=== PATIENT | male | born 1990 | race Caucasian/White ===

== ENCOUNTER 2020-09-12 12:02 | Inpatient (IN) | payer OTHER ==
[~2020-09-12] VITALS: Ht 182.9 cm; Wt 126.5 kg
[~2020-09-12 12:02] MED LIST: AMOCLA600S PO; HYDGUAL120 PO; OTC ALLERGY MED
[2020-09-12 14:41] LABS: Hematocrit 44.4 % (37.0-53.0); Mean Corpuscular HGB 28.4 pg (26.0-34.0); Mean Corpuscular HGB Conc 33.8 g/dL (31.5-36.5); Mean Corpuscular Volume 84 fL (80-100); Mean Platelet Volume 10.1 fL (9.1-12.4); Platelet Count 261 K/mm3 (150-400); RDW Coefficient Variation 12.7 % (11.7-14.2); RDW Standard Deviation 39.3 fL (35.1-46.3); Red Blood Cell Count 5.28 M/mm3 (4.30-5.90)
[2020-09-12 14:53] LABS: Alanine Aminotransfer (ALT/SGP 226 U/L (12-78); Albumin, Blood 3.1 g/dL (3.4-5.0); Albumin/Globulin Ratio 0.6 (0.8-1.8); Alk Phos 89 U/L (50-136); Anion Gap 8 mmol/L (6-16); Aspartate Aminotrans (AST/SGOT 114 U/L (12-37); Bilirubin, Total 1.1 mg/dL (0.1-1.0); Blood Urea Nitrogen 17 mg/dL (8-24); Bun/Creatinine Ratio 13.5 (12.0-20.0); CO2, Blood 24 mmol/L (21-32); Calcium, Blood 8.9 mg/dL (8.5-10.1); Chloride, Blood 103 mmol/L (98-108); Creatinine, Blood 1.26 mg/dL (0.60-1.20); Globulin, Blood 4.9 g/dL (2.2-4.0); Glomerular Filtration Rate >60 (60-); Glucose, Blood 103 mg/dL (70-99); Potassium, Blood 3.5 mmol/L (3.5-5.5); Sodium, Blood 135 mmol/L (136-145)
[2020-09-12 15:30] LABS: BASOPHILS PERCENT MAN 0 % (0-2); EOSINOPHILS PERCENT MAN 0 % (0-6); LYMPHOCYTES % ATYPICAL MANUAL 3 % (0-0); LYMPHOCYTES ABSOLUTE MAN 1.31 K/mm3 (0.84-5.20); LYMPHOCYTES PERCENT MAN 16 % (21-46); MONOCYTES ABSOLUTE MAN 0.41 K/mm3 (0.16-1.47); MONOCYTES PERCENT MAN 6 % (4-13); NEUTROPHILS ABSOLUTE MAN 5.17 K/mm3 (1.96-9.15); SEG NEUTROPHILS PERCENT MAN 75 % (41-73); TOTAL CELLS COUNTED 100
[2020-09-12 16:30] LABS: PCO2 Arterial 28.8 mmHg (35-45); PO2 Arterial 74.5 mmHg (80-100); pH Blood Arterial 7.47 (7.35-7.45)
--- NOTE | 2020-09-13 | NUR ---
30 YR OLD MALE ADMITTED ON PREVIOUS SHIFT WITH DX OF COVID 19. PT ON DROPLET ISOLATION. HAS FINISHED FIRST DOSE OF REMDESIVIR AND ANTIBIOTIS. SEE MAR FOR DETAILS. ORINETD TO USE OF CALL LIGHT AND CALL LIGHT IN REACH
--- NOTE | 2020-09-13 04:53 | NUR ---
MIGHT SHIFT SUMMARY HAS BEEN RESTING QUIETLY SINCE HS WITH O2 PER NCAT 3L/MIN. IV MEDS INFUSED, DROPLET ISOLATION MAINTAINED. NO C/O VOICED, HAD STATED HE FELT "BETTER" POST REMDESIVIR INFUSION. CALL LIGHT IN REACH. WILL MONITOR
[2020-09-13 05:33] LABS: Hematocrit 43.9 % (37.0-53.0); Hemoglobin 14.7 g/dL (13.5-17.5); Mean Corpuscular HGB 28.5 pg (26.0-34.0); Mean Corpuscular HGB Conc 33.5 g/dL (31.5-36.5); Mean Corpuscular Volume 85 fL (80-100); Mean Platelet Volume 10.2 fL (9.1-12.4); Platelet Count 279 K/mm3 (150-400); RDW Coefficient Variation 12.8 % (11.7-14.2); RDW Standard Deviation 39.9 fL (35.1-46.3); Red Blood Cell Count 5.15 M/mm3 (4.30-5.90); White Blood Cell Count 6.61 K/mm3 (4.00-11.30)
[2020-09-13 05:41] LABS: PCO2 Arterial 32.7 mmHg (35-45); PO2 Arterial 61.6 mmHg (80-100); pH Blood Arterial 7.44 (7.35-7.45)
[2020-09-13 05:52] LABS: Anion Gap 7 mmol/L (6-16); Blood Urea Nitrogen 17 mg/dL (8-24); Bun/Creatinine Ratio 18.8 (12.0-20.0); CO2, Blood 24 mmol/L (21-32); Chloride, Blood 106 mmol/L (98-108); Creatinine, Blood 0.91 mg/dL (0.60-1.20); Glomerular Filtration Rate >60 (60-); Glucose, Blood 115 mg/dL (70-99); Potassium, Blood 3.6 mmol/L (3.5-5.5); Sodium, Blood 137 mmol/L (136-145)
[2020-09-13 11:15] LABS: C-Reactive Protein, High Sens. 96.5 mg/L (0.000-3.000)
--- NOTE | 2020-09-13 16:42 | NUR ---
SHIFT SUMMARY PATIENT DENIES PAIN AND NAUSEA. MAINTAINING OXYGENS SATURATION BETWEEN 90-92% ON 4L/NC. PATIENT REPORTS DYSPNEA WITH EXERTION BUT DENIES DIZZINESS WHEN AMBULATING. UP INDEPENDENT TO BATHROOM. PLEASANT AND COOPERATIVE WITH CARE.
--- NOTE | 2020-09-14 00:10 | NUR ---
NOTE O2 SATS DROPPING IN TO MID 80'S. RT IN THE ROOM, RT STATED HE WOULD START HIM ON HIGH FLOW HE IS NOT RESPONDING TO TREATMENT. WILL MONITOR.
--- NOTE | 2020-09-14 00:40 | NUR ---
CALL PLACED TO MD POWERHOUSE HELPER RE POSSIBLE BLOOD GAS, SAID NO, TO PLACE ON AIR VO. RT NOTIFIED. WILL CONTINUE TO MONITOR. O2 SATS AT THIS TIME 86%.
--- NOTE | 2020-09-14 05:52 | NUR ---
SPORTS MARKETER SUMMARY SHIFT COMMENCE TO NO COMPLAINTS VOICED. DENIES DISTRESS, O2 PER NC AT 3L/MIN. HOWEVER, AFTER GETTING UP TO THE BATHROOM IN THE NIGHT, BECAME SOB WITH O2 SATS IN THE 80'S. RT NOTIFIED, O2 INCRESED TO 6L/MIN AND STILL HAVING SOB, MD WAS NOTIFIED, AIR VO WAS ORDERED PER RT CONTROL. RT ASSESSED AND THEN PT WAS NOTED TO HAVE TAKEN OFF NC, AND WHEN NC WAS PLACED BACK ON AT 3L/MIN, PT RETURNED TO MID 90'S IN SATURATION. CURRENTLY SATING IN THE 90'S. DROPLET PRECAUTIONS MAINTAINED. CALL LIGHT IN REACH.
[2020-09-14 06:19] LABS: Alanine Aminotransfer (ALT/SGP 218 U/L (12-78); Albumin, Blood 2.7 g/dL (3.4-5.0); Albumin/Globulin Ratio 0.6 (0.8-1.8); Alk Phos 85 U/L (50-136); Anion Gap 9 mmol/L (6-16); Aspartate Aminotrans (AST/SGOT 66 U/L (12-37); Bilirubin, Total 0.5 mg/dL (0.1-1.0); Blood Urea Nitrogen 19 mg/dL (8-24); Bun/Creatinine Ratio 18.4 (12.0-20.0); CO2, Blood 24 mmol/L (21-32); Chloride, Blood 107 mmol/L (98-108); Creatinine, Blood 1.03 mg/dL (0.60-1.20); Globulin, Blood 4.5 g/dL (2.2-4.0); Glomerular Filtration Rate >60 (60-); Glucose, Blood 111 mg/dL (70-99); Potassium, Blood 3.4 mmol/L (3.5-5.5); Sodium, Blood 140 mmol/L (136-145); Total Protein, Blood 7.2 g/dL (6.4-8.2)
--- NOTE | 2020-09-14 12:43 | NUR ---
ALERT. ORIENTED. ADVISED THIS MORNING ABOUT BENEFIT OF PRONING. GIVEN COUPLE EXTRA PILLOWS AND WHEN HOSPITALIST WENT IN PATIENT WAS PRONING. DOES DESAT WHEN GOING TO BATHROOM AT THIS TIME. ON 5 LPM HIGH FLOW OXYGEN. INDEPENDENT IN ROOM. WCTM
--- NOTE | 2020-09-14 13:56 | NUR ---
PATIENT SATS HIGH 90'S ON 6 LPM WHEN SLEEPING PRONE. OBSERVED AT 89%-91% WHEN SITTING IN BED. ADVISED PATIENT COUPLE TIMES TODAY TO LYE ON HIS STOMACH WHICH HE IS DOING AT THIS TIME. TM
--- NOTE | 2020-09-14 18:08 | NUR ---
ALERT. ORIENTED. PLEASANT. NO COUGH. LUNGS DIM T/O. ON CONTINUOUS WIFI SAT MONITOR. ON 6 LPM HIGH FLOW OXYGEN VIA CANNULA. WHEN SATS ARE HIGH 90'S PATIENT OBSERVED BEING IN PRONE POSITION. WHEN SATS LOW 90'S PATIENT OBSERVED NONPRONE. EARLY A.M. PATIENT HAD DROPPED DOWN TO 88-91% WITH OXYGEN BEING TITRATED FROM 3 LPM UP TO 6 LPM. PATIENT ADVISED EVERYTIME THIS RN GOES IN TO SEE HIM THE BENEFITS OF LYING PRONE. GOOD APPETITE. INDEPENDENT IN THE ROOM. WCTM
--- NOTE | 2020-09-14 18:29 | NUR ---
PATIENT HAS BEEN EATTING OUSIDE FOOD THAT HAS BEEN BROUGHT IN FOR HIM. GOOD APPETITE.
--- NOTE | 2020-09-15 05:10 | NUR ---
SHIFT SUMMARY PT HAS RESTED T/O THE SHIFT. LUNGS REMAIN DIMINISHED T/O. OCCASIONAL NON PRODUCTIVE COUGH. PT IS AEBRILE, DENIES N/V. APPETITE IS GOOD. PT REMAINS ON 6L O2, T/O SHIFT HE QUICKLY DESATS DURING THE NIGHT WHILE SLEEPING AND WITH ACTIVITY. PT ENCOURAGED TO SELF PRONE, AND STATES THAT HE HAS BEEN DOING SO. O2 SATS BEING MONITORED OUTSIDE THE ROOM WITH BLUETOOTH BIOX MACHINE, SATS REMAIN WNL T/O SHIFT. PT INDEPENDENT IN ROOM, AND PERFORMS HIS OWN ADLS. ENCOURAGED TO CALL IF HE NEEDS ANYTHING, MAKES NEEDS KNOWN. NO ACUTE CHANGES OVERNIGHT. BED IN LOWEST POSITION, CALL LIGHT WITHIN REACH.
[2020-09-15 06:13] LABS: Alanine Aminotransfer (ALT/SGP 165 U/L (12-78); Albumin, Blood 2.6 g/dL (3.4-5.0); Albumin/Globulin Ratio 0.6 (0.8-1.8); Alk Phos 75 U/L (50-136); Anion Gap 4 mmol/L (6-16); Aspartate Aminotrans (AST/SGOT 32 U/L (12-37); Bilirubin, Total 0.4 mg/dL (0.1-1.0); Blood Urea Nitrogen 19 mg/dL (8-24); Bun/Creatinine Ratio 17.9 (12.0-20.0); CO2, Blood 27 mmol/L (21-32); Calcium, Blood 8.7 mg/dL (8.5-10.1); Chloride, Blood 111 mmol/L (98-108); Creatinine, Blood 1.06 mg/dL (0.60-1.20); Globulin, Blood 4.2 g/dL (2.2-4.0); Glomerular Filtration Rate >60 (60-); Glucose, Blood 103 mg/dL (70-99); Potassium, Blood 3.9 mmol/L (3.5-5.5); Sodium, Blood 142 mmol/L (136-145); Total Protein, Blood 6.8 g/dL (6.4-8.2)
--- NOTE | 2020-09-15 16:38 | NUR ---
SHIFT SUMMARY NO ACUTE CHANGES TO PRESENT THIS SHIFT. PT DOING WELL AT START OF SHIFT. WAS ON 6L O2 VIA NC. PT HAS BEEN TITRATED DOWN TO 2L O2 WITH BIOX AT 94%. PT REPORTS THAT HE IS FEELING BETTER TODAY AND IS HOPING TO GO HOME TOMORROW AFTER HIS LAST DOSE OF REMDESIVIR. DR SOLER HERE TO SEE PT THIS AM. UPDATED ON O2 REQUIREMENTS. PT IS A&O, INDEPENDENT IN AND TO [facility]. ABLE TO MAKE NEEDS KNOWN. CALL LT IN REACH. DENIED FURTHER NEEDS.
--- NOTE | 2020-09-16 04:53 | NUR ---
Shift Summary A/O, independent in room. Currently on 1.5L with resting sats above 90%. Attemted to titrate down to 1L, but patient desatted to low 80's during ambulation to bathroom. Bradycardia to low 40's during sleep. Patient refused Lovenox despite education RE high risk for blood clot formation. Continuous biox on. Otherwise, slept well through the night. Dyspneic with exertion.
[2020-09-16] MEDS ORDERED: ACET325 PO (11:07)
[2020-09-16] MEDS ORDERED: ALBU90OI INH (11:08)
[2020-09-16] MEDS ORDERED: Tessalon200 MG PO (11:08)
[2020-09-16] MEDS ORDERED: ASCO500 PO (11:08)
[2020-09-16] MEDS ORDERED: GUAI600T33 PO (11:09)
[2020-09-16] MEDS ORDERED: DECADRON6 M1 PO (11:09)
--- NOTE | 2020-09-16 15:47 | NUR ---
SHIFT SUMMARY PT AWAKE AT START OF SHIFT, DOING WELL. PT ON 1.5L O2 AND TITRATED DOWN TO 0.5L NC. PT'S BIOX REMAINED AT 91%-94%. PT WANTING TO GO HOME TODAY AFTER LAST DOSE OF REMDESIVIR. UP INDEPENDENTLY IN AND TO [facility]. PT PLACED ON RA W/O DIFFICULTY AND NO CHANGES TO BIOX. DR SOLER HERE TO SEE PT. VERBAL ORDER FOR PT TO HAVE HOME O2 EVAL FOR D/C. RT REPORTED PT DID GREAT AND DID NOT NEED O2 WHEN GOING HOME. D/C ORDERS PLACED. DR SOLER TO ONCE MORE TO SEE PT. D/C INSTRUCTIONS DISCUSSED WITH PT; VERBALIZED UNDERSTANDING. IV SITE D/C'D AFTER REMDESIVIR INFUSED AND PT ASSISTED OUT TO AND FAMILY VIA W/C.
== END 2020-09-16 13:50 | disposition home or self-care (01) | DRG 871 ==
LOC: ER 12:02 → MEDS 15:56
PROVIDERS: Internal Medicine; Student in an Organized Health Care Education/Training Program; ADMIT Internal Medicine
PROC: 8E0ZXY6 Isolation (ICD-10-PCS; principal; 2020-09-12)
PROC: 3E0333Z Introduction of Anti-inflammatory into Peripheral Vein, Percutaneous Approach (ICD-10-PCS; 2020-09-12)
PROC: XW033E5 Introduction of Remdesivir Anti-infective into Peripheral Vein, Percutaneous Approach, New Technology Group 5 (ICD-10-PCS; 2020-09-12)
DX: A41.89 Other specified sepsis (principal); U07.1 COVID-19; J12.82 Pneumonia due to coronavirus disease 2019; J96.01 Acute respiratory failure with hypoxia; E87.1 Hypo-osmolality and hyponatremia; N17.9 Acute kidney failure, unspecified; R65.20 Severe sepsis without septic shock; R74.01 Elevation of levels of liver transaminase levels
CPT/HCPCS: 36415; 36600; 71045; 80048; 80053; 82803; 83605; 83615; 85025; 85027; 85379; 85651; 86141; 87040; 93005; 93010; 94640; 94761; 94762; 96374; 99285-25; A9270; J0456; J1100; J1650; J7050; J7120

== ENCOUNTER 2024-04-07 13:50 | Emergency (ER) | payer OTHER ==
[~2024-04-07] VITALS: Ht 182.9 cm; Wt 147.4 kg
[~2024-04-07 13:50] MED LIST changes: +ACET325 PO; +ALBU90OI INH; +ASCO500 PO; +DECADRON6 M1 PO; +GUAI600T33 PO; +Tessalon200 MG PO
[2024-04-07 16:50] VITALS: BP 141/77
[2024-04-07] MEDS ORDERED: ONDA4ODT MM (17:51)
[2024-04-07] MEDS ORDERED: IBUP800 PO (17:51)
== END 2024-04-07 18:15 | disposition home or self-care (01) ==
LOC: ER 13:50
DX: N20.1 Calculus of ureter (principal); R10.9 Unspecified abdominal pain; Z79.899 Other long term (current) drug therapy
CPT/HCPCS: 74177; 80053; 83690; 85025; 99284-25; Q9967